=== PATIENT | male | born 1950 | race Two or more races ===

== ENCOUNTER 2018-08-23 05:15 | Day surgery (SDC) | payer OTHER ==
[~2018-08-23 05:15] MED LIST: COZAAR100 MG PO; FORTAMET1000 MG PO; NEURAPTINE30 ML PO
== END 2018-08-23 11:20 | disposition home or self-care (01) ==
LOC: EDBD → CIR.AMB 05:15
DX: M65.842 Other synovitis and tenosynovitis, left hand (principal)